=== PATIENT | female | born 1990 | race Caucasian/White ===

== ENCOUNTER 2023-03-04 19:03 | Emergency (ER) | payer BC, SELFPAY ==
[2023-03-04 19:09] VITALS: BP 118/71; PULSE 108; RESP 20; TEMP 37.5; O2SAT 99; BMI 41.5
--- NOTE | 2023-03-04 19:29 | ECG_ITS ---
APPROVED REPORT Exam: Resting ECG HR:105 bpm ECG Measurements Heart Rate 105 AXES SC 154 P 56 QRSd 106 QRS 17 QT 310 T 57 QTc 371 Conclusion SINUS TACHYCARDIA ABNORMAL RHYTHM ECG UNCONFIRMED REPORT Electronically signed by : Howard Zamorano MD 03/06/2023 20:53:34
[2023-03-04 19:30] VITALS: BP 118/71; PULSE 104; O2SAT 98
[2023-03-04 19:34] LABS: Microscopic, Urine URINE MICROSCOPIC (MICROSCOPIC)
[2023-03-04 19:37] LABS: Appearance,Urine CLEAR (Clear); Bilirubin,Urine Negative (Negative); Blood, Urine Negative (Negative); Color,Urine YELLOW (Yellow); Glucose,Urine (UA) Negative (Negative); Ketones,Urine Negative (Negative); Leukocyte Esterase,Urine Negative (Negative); Nitrate,Urine Negative (Negative); PH,Urine 7.5 (5.0-8.5); Protein,Urine Negative (Negative)
[2023-03-04 19:41] LABS: Urine Pregnancy, HCG Qual. Negative (Negative)
[2023-03-04 19:49] LABS: Bacteria,Urine Trace /lpf; WBC,Urine Occasional #/hpf (0-3)
[2023-03-04 20:00] VITALS: BP 107/68; PULSE 103; RESP 16; O2SAT 99
--- NOTE | 2023-03-04 20:01 | [facility].EDGENADL ---
Discharge Plan Disposition Patient Disposition: Home, Self-Care Prescriptions Prescriptions: No Action buspirone 10 mg Tablet 10 mg PO DAILY albuterol 90 mcg/actuation Aerosol 90 mcg INHALATION Q4-6H PRN (Reason: Wheezing) fluticasone propion-salmeterol [Advair HFA] 115-21 mcg/actuation Hfa Aerosol Inhaler 1 inh INHALATION DAILY Referrals Follow up/Referrals: Provider,Referral, MD [Primary Care Provider] - See instructions Activity Restrictions/Add. Instructions Additional Instructions/Restrictions: Call your family doctor to establish care for this visit to the emergency department and schedule follow-up within 48 hours to ensure improvement. If you have any worsening of your condition or any other concerning signs or symptoms, return to the emergency department or your primary care doctor for further evaluation. Take Tylenol 1000 mg every 6 hours (4 times daily) and ibuprofen 400 mg every 6 hours (4 times daily) as needed with food and water to prevent GI upset and kidney damage. Clinical Impressions Clinical Impression: COVID-19 Discharge ED Provider: Mark Amaya General Adult HPI General Chief complaint: Dizziness Stated complaint: weak, overheated Time Seen by Provider: 03/04/23 19:17 Mode of Arrival: Family Vehicle Source of Information: Patient Limitations: No Limitations Description of Symptoms (Recalled from ER Triage Doc. by RN): Pt stated that she was sitting outside under a tent for about 2 hours. She stated that she started to feel light headed and dizzy. History of Present Illness HPI narrative: This is a 32-year-old female with no relevant medical history presenting with lightheadedness. Patient states that she has not ate or drank much of anything today, and spent the entire day outside in the heat. Just before coming to the emergency department, she felt lightheaded, nauseated and as if she should be sweating due to the heat, but was not sweating at all. Took her temperature, she was 100.1, few minutes later after resting, was 102.3, so came to the emergency department for further evaluation. Has associated sinusitis, postnasal drip, general malaise, body aches, but denies diarrhea, constipation, abdominal pain, abnormal vaginal discharge or bleeding, urinary symptoms, chest pain, cough, shortness of breath, unilateral deficits, or any other concerns Related Data Home Medications Medication Instructions Recorded Confirmed albuterol 90 mcg/actuation aerosol 90 mcg inhalation Q4-6H PRN 03/04/23 03/04/23 inhaler Wheezing buspirone 10 mg tablet 10 mg PO DAILY Anxiety 03/04/23 03/04/23 fluticasone propionate 115 1 inh inhalation DAILY Asthma 03/04/23 03/04/23 mcg-salmeterol 21 mcg/actuation HFA inhaler (Advair HFA) Allergies Allergy/AdvReac Type Severity Reaction Status Date / Time Latex, Natural Rubber Allergy Verified 03/04/23 19:49 [facility] Disclaimer: The information contained in this section may have been updated after the patient was seen, as this information can be updated by other users. Social History Smoking Status: Never smoker alcohol intake: never current occupational status: employed Travel in the last 8 weeks: None ROS Obtained: Yes All systems reviewed & no additional complaints except as documented Physical Exam General General appearance: alert, in no apparent distress and other ( ) Head Head exam: atraumatic and normocephalic Eye Eye exam: Present normal appearance, PERRL and EOMI ENT ENT exam: Present mucous membranes moist Neck Neck exam: Present normal inspection, full ROM and trachea midline Respiratory Respiratory exam: Absent respiratory distress, wheezes, stridor, accessory muscle use or prolonged expiratory phase Cardiovascular Cardiovascular exam: Present regular rate and normal rhythm Abdominal Exam Abdominal exam: Present soft; Absent distention, tenderness, guarding, rebound, rigidity or normal bowel sounds E
[2023-03-04 20:06] LABS: Influenza A, PCR Not Detected (NotDetected); Influenza B, PCR Not Detected (NotDetected)
[2023-03-04 20:07] LABS: Basophils % 0.7 % (0.1-2.0); Eosinophils # 0.1 K/mm3 (0.0-0.4); Hematocrit 39.4 % (37.0-47.0); Hemoglobin 12.2 g/dL (12.2-16.2); Lymphocytes # 0.7 K/mm3 (0.7-4.5); Mean Corpuscular HGB Conc 30.9 g/dL (31.8-35.4); Mean Corpuscular Volume 74.5 fl (81-99); Mean Platelet Volume 8.2 fl (7.4-10.4); Monocytes # 0.4 K/mm3 (0.1-1.0); Monocytes % 5.3 % (1.7-9.3); Neutrophils # 5.5 K/mm3 (1.8-7.8); Platelet Count 319 K/mm3 (142-424); Red Blood Count 5.29 M/mm3 (4.20-5.40); Red Cell Distribution Width 15.2 % (11.5-17.5); White Blood Count 6.6 K/mm3 (4.8-10.8)
[2023-03-04 20:14] LABS: Alanine Aminotransferase 23 U/L (12-78); Albumin Level 4.9 g/dl (3.5-5.0); Albumin/Globulin Ratio 1.2 (1.1-1.8); Alkaline Phosphatase 64 U/L (38-126); Anion Gap 15.8 mEq/L (5-15); Aspartate Amino Transferase 24 U/L (14-36); Bilirubin,Total 0.2 mg/dl (0.2-1.3); Blood Urea Nitrogen 11 mg/dl (7-17); Calcium 9.9 mg/dl (8.4-10.2); Carbon Dioxide 25 mmol/L (22.0-30.0); Chloride 104 mmol/L (98-107); Creatinine Clearance Estimated 97 mL/min (50-200); Estimated Glomerular Filt Rate 83 ml/min (>60); GFR (African American) 100 ML/MIN (>60); Glucose 83 mg/dl (74-100); Potassium 3.8 mmoL/L (3.5-5.1); Sodium 141 mmol/L (136-145); Total Protein,Serum 8.9 g/dl (6.3-8.2)
[2023-03-04 20:28] VITALS: TEMP 39.4
[2023-03-04 20:29] LABS: Coronavirus 19, PCR Detected (NotDetected)
[2023-03-04 21:44] VITALS: BP 105/74; PULSE 91; RESP 16; TEMP 37.2; O2SAT 99
== END 2023-03-04 21:45 | disposition home or self-care (01) ==
PROVIDERS: Emergency Provider Emergency Medicine
DX: U07.1 COVID-19 (principal); R42 Dizziness and giddiness; R53.1 Weakness; R00.0 Tachycardia, unspecified
CPT/HCPCS: 80053; 81001; 81025; 85025; 87636; 93005; 96361; 96374; 96375; 99285; J0131